=== PATIENT | male | born 1940 | race Caucasian/White ===

== ENCOUNTER 2024-12-13 07:07 | Day surgery (SDC) | payer OTHER ==
[2024-11-29 11:05] LABS: Absolute Basophils 0.1 K/uL (0-0.5); Absolute Eosinophils 0.3 K/uL (0-0.5); Absolute Lymphocytes (CBC) 1.7 K/uL (0.7-4.9); Absolute Monocytes 0.8 K/uL (0.1-1.3); Absolute Neutrophil 4.8 K/uL (1.8-8.0); Basophils % 1.3 % (0-1.3); Eosinophils % 4.3 % (0-4.4); Lymphocytes % 21.7 % (15.3-44.8); MCV 85.2 fL (80-100); MPV 9.4 fL (7.6-11.3); Monocytes % 9.9 % (3.3-12.3); Neutrophils % 62.8 % (41.7-73.7); Platelets 212 thou/uL (152-406); RBC Red Blood Cell Count 5.51 M/uL (4.33-5.43); Red Cell Distribution Width 14.8 % (12.1-15.2)
[2024-11-29 11:11] LABS: PT Prothrombin Time 10.6 SECONDS (10-13.0); PTT, Activated Partial Thromb 31.8 SECONDS (27.2-37.4); Protime INR 0.93
--- NOTE | 2024-11-29 11:15 | RAD REPORT ---
EXAM: Chest Pa And Lat (2 Views) HISTORY: 84 years Male Pre-op pending carotid angiogram COMPARISON: None. FINDINGS: LUNGS/PLEURA: Eventration of the right hemidiaphragm. Question bronchial wall thickening and bronchie ctasis at the right middle lobe which is probably chronic. CARDIAC/MEDIASTINUM: Mild cardiomegaly. Aortic valve prosthesis. UPPER ABDOMEN: No significant abnormality. BONES: Sternotomy. No acute abnormality. LINES/TUBES/OTHER: N/A IMPRESSION: No evidence of acute cardiopulmonary disease. Eventration of the right hemidiaphragm. Question bronch ial wall thickening and bronchiectasis and bronchiectasis at the right middle lobe. This is probably chronic.
[2024-11-29 11:16] LABS: Anion Gap 4.9 mEq/L (5.0-15.0); Potassium 3.9 mEq/L (3.5-5.1)
--- NOTE | 2024-12-01 12:43 | EKG ---
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
[2024-12-13] MEDS ORDERED: NA CHLORIDE 0.9% 500 ML ONE (07:10)
[2024-12-13] MEDS ORDERED: HEPA 1000U/500MLS 2,000 UNIT/1,000 ML BAG IV ONE (07:13)
[2024-12-13] MEDS ORDERED: ATROPINE SULF 1 MG/10 ML SYR IV ONE (07:14)
[2024-12-13] MEDS ORDERED: NITROGLYCERIN/D5W 50 MG/250 ML BTL IV ONE (07:14)
[2024-12-13] MEDS ORDERED: MIDAZOLAM HCL 2 MG/2 ML INJ ONE (07:14)
[2024-12-13] MEDS ORDERED: LIDOCAINE 1% 20 ML MDV ONE (07:14)
[2024-12-13] MEDS ORDERED: FENTANYL CITR 100 MCG/2 ML ONE (07:14)
[2024-12-13] MEDS ORDERED: HEPARIN 5000 UNIT/ML 1 ML VIAL ONE (07:15)
[2024-12-13 07:25] VITALS: TEMP 97.5
[2024-12-13 10:37] VITALS: BP 129/71; O2SAT 94
--- NOTE | 2024-12-13 23:37 | OP ---
Date of Procedure: 12/13/2024 Surgeon: Tarun Olmedo Procedure Performed: Bilateral carotid angiogram. Indication For Procedure: Carotid artery disease with history of and abnormal carotid dup sabrina. Complications: None. Estimated Blood Loss: Less than 50 cc. Access: Right common femoral artery, closed by Mynx. Anesthesia: Sedation time is 20 minutes with 1 of Versed and 50 of fentanyl. Description Of Procedure: After risks, benefits, and alternatives were explained to the patient, pat ient agreed to proceed with procedure and signed informed consent. The patient was brought back to [facility], prepped and draped in sterile fashion. Time-out was performed. Sedation was administer ed. Next, right common femoral artery ultrasound-guided micropuncture technique access was obtained. A 5-[place] catheter was advanced to the aortic root. Selective angiogram of the right and lef t common carotid arteries was done using this catheter. In the end of procedure, catheter was remove d over a J-wire. Sheath was removed. Mynx was applied. Hemostasis was achieved. The patient was m joycelyn back to recovery in stable condition. Findings: 1. Right common carotid artery is ectatic but is patent. 2. Right internal carotid artery is very tortuous with two 90 degree bends, got a proximal 70% diseas e, then mild luminal irregularities. 3. Right external carotid artery: Patent. 4. Left common carotid artery: Patent. 5. Left internal carotid artery is also very tortuous with two 90 degrees bends and got a proximal 80 % disease at the bed area. Assessment And Plan: Significant bilateral internal carotid artery disease. Due to tortuosity of the arteries and complexity, surgery is very high risk and also stent is not an option. So, we will continue medical management. Continue aspirin 81 mg daily. Add Plavix 75 mg daily and continue aggressive medical treatment. ARREGUIN/MODL Voice ID: [id number] Report ID: [id number]
== END 2024-12-13 10:45 | disposition home or self-care (01) ==
LOC: PRE 07:07 → CCL 10:45
PROVIDERS: ATTEND Internal Medicine Interventional Cardiology
DX: I65.23 Occlusion and stenosis of bilateral carotid arteries (principal); I77.1 Stricture of artery; I10 Essential (primary) hypertension; E78.5 Hyperlipidemia, unspecified; Z87.891 Personal history of nicotine dependence; Z79.82 Long term (current) use of aspirin; Z79.899 Other long term (current) drug therapy
CPT/HCPCS: 93005; 85025; 80048; 36415; 85610; 85730; 71046; 36222; 76937; C1893; J2003; J2250; J3010; J7040; C1760; 99152; 99153; J0461; J1644